=== PATIENT | male | born 2000 | race Caucasian/White ===

== ENCOUNTER 2022-08-09 08:43 | Emergency (ER) | payer OTHER ==
[~2022-08-09] VITALS: Ht 175.3 cm; Wt 89.0 kg
[2022-08-09 09:03] VITALS: BP 168/93
[2022-08-09] MEDS ORDERED: HYDR50SY PO ×3 (10:07→10:08)
== END 2022-08-09 10:46 | disposition home or self-care (01) ==
LOC: ER 08:43
DX: F41.9 Anxiety disorder, unspecified (principal); F45.8 Other somatoform disorders
CPT/HCPCS: 93005; 99283